=== PATIENT | male | born 1965 | race African-American/Black ===

== ENCOUNTER 2016-06-03 18:01 | Emergency (ER) | payer SELFPAY ==
--- NOTE | 2016-06-03 18:19 | ER Document Report ---
ED Medical Screen (RME) - General Chief Complaint: High Blood Pressure Stated Complaint: BLOOD PRESSURE PROBLEM Notes: h/o HTN, havent bee tkaing medications because he hasnt had a rx. has been off of them since january. recently moved to [place] admits to headahce and dizzyness. HCTZ 25 mg and Lisinopril 20mg I have greeted and performed a rapid initial assessment of this patient. A comprehensive ED assessment and evaluation of the patient, analysis of test results and completion of the medical decision making process will be conducted by additional ED providers. TRAVEL OUTSIDE OF THE [place] IN LAST 30 DAYS: No - Related Data Allergies/Adverse Reactions: No Known Allergies Allergy (Verified 06/03/16 18:17) Past Medical History - Social History Chew tobacco use (# tins/day): No Frequency of alcohol use: None Drug Abuse: None Renal/ Medical History: Denies: Hx Peritoneal Dialysis Physical Exam - Vital signs Vitals: Temp Pulse Resp BP Pulse Ox 97.8 F 68 20 159/103 H 99 06/03/16 18:10 06/03/16 18:10 06/03/16 18:10 06/03/16 18:10 06/03/16 18:10 Course - Vital Signs Vital signs: Temp Pulse Resp BP Pulse Ox 97.8 F 68 20 159/103 H 99 06/03/16 18:10 06/03/16 18:10 06/03/16 18:10 06/03/16 18:10 06/03/16 18:10
[2016-06-03 19:24] LABS: APPEARANCE,URINE CLEAR; BILIRUBIN,URINE NEGATIVE (NEGATIVE); GLUCOSE, URINE NEGATIVE (NEGATIVE); KETONES,URINE NEGATIVE (NEGATIVE); LEUKOCYTE ESTERASE,URINE NEGATIVE (NEGATIVE); NITRITE,URINE NEGATIVE (NEGATIVE); PROTEIN,URINE NEGATIVE (NEGATIVE); URINE SPECIFIC GRAVITY 1.016; UROBILINOGEN,URINE NEGATIVE mg/dL (<2.0)
[2016-06-03 19:34] LABS: ALANINE AMINOTRANSFERASE 30 U/L (21-72); ALKALINE PHOSPHATASE 43 U/L (38-126); ANION GAP 10 (5-19); ASPARTATE AMINO TRANSFERASE 30 U/L (17-59); BILIRUBIN,TOTAL 0.7 mg/dL (0.2-1.3); BLOOD UREA NITROGEN 13 mg/dL (7-20); CALCIUM 9.5 mg/dL (8.4-10.2); CARBON DIOXIDE 26 mmol/L (22-30); CHLORIDE 107 mmol/L (98-107); CREATININE RESULT 1.08 mg/dL (0.52-1.25); GLUCOSE 89 mg/dL (75-110); POTASSIUM 4.7 mmol/L (3.6-5.0); SODIUM 143.3 mmol/L (137-145); TOTAL PROTEIN 6.6 g/dL (6.3-8.2)
[2016-06-03] MEDS ORDERED: HYDROCHLOROTHIAZIDE 25 MG TABLET PO ONE (22:19)
[2016-06-03] MEDS ORDERED: LISINOPRIL 10 MG TABLET PO ONE (22:19)
--- NOTE | 2016-06-03 22:22 | ER Document Report ---
ED Blood Pressure Problem - General Chief Complaint: High Blood Pressure Stated Complaint: BLOOD PRESSURE PROBLEM Notes: Patient is a 50-year-old male that comes emergency department with chief complaint of uncontrolled blood pressure. Patient states he's been getting mild headaches, he states he used to be on lisinopril and hydrochlorothiazide combination, states that he ran out of this and his not been established with primary care locally. Patient denies any chest pain, urinary retention, severe headache, focal numbness or weakness, he states currently he has no symptoms. TRAVEL OUTSIDE OF THE [place] IN LAST 30 DAYS: No - Related Data Allergies/Adverse Reactions: No Known Allergies Allergy (Verified 06/03/16 18:17) Past Medical History - General Information source: Patient - Social History Smoking Status: Never Smoker Chew tobacco use (# tins/day): No Frequency of alcohol use: None Drug Abuse: None Lives with: Family Family History: Reviewed & Not Pertinent Patient has suicidal ideation: No Patient has homicidal ideation: No - Past Medical History Cardiac Medical History: Reports: Hx Hypertension Renal/ Medical History: Denies: Hx Peritoneal Dialysis Surgical Hx: Negative - Immunizations Hx Diphtheria, Pertussis, Tetanus Vaccination: Yes Review of Systems - Review of Systems Constitutional: No symptoms reported EENT: No symptoms reported Cardiovascular: See HPI Respiratory: No symptoms reported Gastrointestinal: No symptoms reported Genitourinary: No symptoms reported Male Genitourinary: No symptoms reported Musculoskeletal: No symptoms reported Skin: No symptoms reported Hematologic/Lymphatic: No symptoms reported Neurological/Psychological: See HPI Physical Exam - Vital signs Vitals: Temp Pulse Resp BP Pulse Ox 97.8 F 68 20 159/103 H 99 06/03/16 18:10 06/03/16 18:10 06/03/16 18:10 06/03/16 18:10 06/03/16 18:10 Interpretation: Normal - General General appearance: Appears well, Alert In distress: None - HEENT Head: Normocephalic, Atraumatic Eyes: Normal Pupils: PERRL - Respiratory Respiratory status: No respiratory distress Chest status: Nontender Breath sounds: Normal Chest palpation: Normal - Cardiovascular Rhythm: Regular. No: Tachycardia Heart sounds: Normal auscultation, S1 appreciated, S2 appreciated Murmur: No - Abdominal Inspection: Normal Distension: No distension Bowel sounds: Normal Tenderness: Nontender Organomegaly: No organomegaly - Back Back: Normal, Nontender - Extremities General upper extremity: Normal inspection, Nontender, Normal color, Normal ROM , Normal temperature General lower extremity: Normal inspection, Nontender, Normal color, Normal ROM , Normal temperature, Normal weight bearing. No: Cherelle's sign - Neurological Neuro grossly intact: Yes Cognition: Normal Orientation: AAOx4 Yvrose Coma Scale Eye Opening: Spontaneous Floral Coma Scale Verbal: Oriented Yvrose Coma Scale Motor: Obeys Commands Floral Coma Scale Total: 15 Speech: Normal Motor strength normal: LUE, RUE, LLE, RLE Sensory: Normal - Psychological Associated symptoms: Normal affect, Normal mood - Skin Skin Temperature: Warm Skin Moisture: Dry Skin Color: Normal Course - Re-evaluation Re-evalutation: Asymptomatic, physical exam unremarkable, patient has been waiting for some time and asks to go immediately. Patient given dose of lisinopril and hydrochlorothiazide, patient resumed on the same medication he was on, referred primary care, instructed to return immediately if he develops chest pain, severe headache, or any other concerning symptoms. Patient states understanding and agreement. - Vital Signs Vital signs: Temp Pulse Resp BP Pulse Ox 97.8 F 59 L 16 174/126 H 100 06/03/16 18:10 06/03/16 22:30 06/03/16 22:30 06/03/16 22:30 06/03/16 22:30 - Laboratory Result Diagrams: 06/03/16 18:50 Discharge - Discharge Clinical Impression: Uncontrolled hypertension Condition: Stable Disposition: HOME, SELF-CARE Additional Instructions: Your EKG and lab workup does not show any abnormality. Please resume your blood pressure medications as prescribed, please follow-up with the clinic referral for continued management. Return to the emergency department for any concerning symptoms including chest pain, severe headache, or any other concerning symptoms. Prescriptions: Lisinopril/Hydrochlorothiazide [Lisinopril-Hctz 20-25 mg Tab] 1 each PO DAILY # 60 tablet Forms: Return to Work Referrals: [facility] [Provider Group] - Follow up in 1 month
[2016-06-03 22:37] VITALS: BP 174/126
--- NOTE | 2016-06-04 08:04 | EKG REPORT ---
SEVERITY:- NORMAL ECG - SINUS RHYTHM : Confirmed by: Tien Roberts MD 04-Jun-2016 08:03:40
== END 2016-06-03 22:37 | disposition home or self-care (01) ==
LOC: ER 18:01
DX: I10 Essential (primary) hypertension (principal); R51 Headache; Z91.14 Patient's other noncompliance with medication regimen
CPT/HCPCS: 36415; 71020; 80053; 81001; 93005; 93010; 99284